=== PATIENT | female | born 1960 | race African-American/Black ===

== ENCOUNTER 2022-06-08 07:57 | Emergency (ER) | payer SELFPAY ==
[2022-06-08] MEDS ORDERED: Ketorolac Tromethamine 30 MG/ML VIAL ONE (09:11)
== END 2022-06-08 09:40 | disposition home or self-care (01) ==
LOC: CSHERS 07:57
DX: S29.011A Strain of muscle and tendon of front wall of thorax, initial encounter (principal); R05.9 Cough, unspecified; X58.XXXA Exposure to other specified factors, initial encounter; E03.9 Hypothyroidism, unspecified; I10 Essential (primary) hypertension
CPT/HCPCS: 71045; 96372; J1885